=== PATIENT | male | born 1995 | race Caucasian/White ===

== ENCOUNTER → 2018-08-03 | Outpatient (CLI) | payer MEDICAID ==
--- NOTE | 2018-08-08 13:01 | CPEEG ---
FOUR-HOUR VIDEO ELECTROENCEPHALOGRAM DATE OF STUDY: 08/03/2018 INTERPRETATION: This 4-hour video EEG contains a mild degree of diffuse nonspecific slowing. These findings could be consistent with a mild diffuse disturbance of cerebral function or sometimes related to medication effect. There were no definite potentially epileptogenic abnormalities present during the awake or sleep recordings. The patient did not have any clinical events during the video EEG monitoring session. REPORT: This 4-hour video EEG monitoring session contains 10 Hz alpha activity of the posterior head regions. There was a mild degree of diffuse theta slowing present in the background on an intermittent basis. There was no abnormal activation at rest, during photic stimulation or hyperventilation. The patient became drowsy and fell asleep during the study. During drowsiness, the patient had drowsy bursts composed of moderate to high amplitude theta and delta frequency activity, maximal over the anterior head regions. This can be a normal drowsy pattern. There was no abnormal activation during drowsiness, sleep or during times of arousal. The patient did not have any clinical events during the video EEG monitoring session. /[id number]/MODL MTDD
== END ==
LOC: FCPNEURO 07:51
PROVIDERS: ATTEND Psychiatry & Neurology Neurology
DX: R46.89 Other symptoms and signs involving appearance and behavior (principal); R55 Syncope and collapse

== ENCOUNTER 2018-10-07 20:27 | Emergency (ER) | payer MEDICAID ==
[2018-10-07] MEDS ORDERED: NS 1,000 ML IV ONE (20:29)
--- NOTE | 2018-10-07 20:29 | EDPHY ---
HPI/HX/ROS/PE/MDM Narrative: CHIEF COMPLAINT: Seizure HPI: The patient is a 23 y/o male with a history of bipolar disorder arriving via EMS after a witnessed seizure this evening. He had his first seizure in June, 75 days ago, and was seen here. He had a normal head CT at that time. He followed up with a neurologist and had a normal EEG and brain MRI. His family was advised to record the next seizure if one occurred and then follow up again. The patient is amnesic to [employer]'s events. His father says "we sat down to watch a movie and he fell off the couch and his arms started flopping around." This went on for 2.5-3 minutes. No incontinence, tongue bite, or report of other pain or trauma. He was postictal for EMS, but is alert and oriented here upon assessment. He says he feels good now. He cannot identify an obvious precipitating cause. He denies recent trauma, recent illness, or illicit drug use. Patient's prehospital BGL was 63 and EMS administered D50 on scene. REVIEW OF SYSTEMS: A comprehensive 10 system review of systems is otherwise negative aside from elements mentioned in the history of present illness. PMH: Bipolar disorder - [place], Zyprexa SOCIAL HISTORY: Father at bedside. Daily marijuana use. PHYSICAL EXAM: General:Patient is alert, in no acute distress. ENT:Eyes are normal to inspection. ENT inspection normal. Neck: Normal inspection. Full range of motion. Respiratory:No respiratory distress. Breath sounds normal bilaterally. Cardiovascular: Regular rate and rhythm. Strong peripheral pulses. Normal cap refill. Abdomen:The abdomen is nontender to palpation. There are no peritoneal signs. Back: Normal to inspection. No tenderness to palpation. Skin: Normal color. No rash. Warm and dry. Extremities: Normal appearance. Full range of motion. Neuro: Oriented x3. Normal motor function. Normal sensory function. ED Course: This is a 23 y/o male with bipolar disorder and history of a first-time seizure 75 days ago who presents today after a 2nd witnessed seizure at home. He is no longer postictal and denies any complaints. He has followed up with neurology since the first seizure and followed their treatment course thus far. His exam is unremarkable. Plan for IV, labs, EKG. 1L IV NS ordered. The 12 lead EKG was interpreted by myself. Sinus mechanism. Similar compared to EKG from 07/19/18. See hard copy and/or "tracemaster" electronic copy for interpretation. Labs unremarkable. Reassessed patient and discussed findings. He is eager to return home. As this is his second seizure and he has already had neuroimaging performed for this we opted to not pursue additional imaging tonight. He understands he needs to follow up with his neurologist after discharge. Standard seizure precautions discussed. He is comfortable with plan for discharge. MDM: This patient presents after a witnessed seizure-like event. He has apparently had a negative EEG within the last year, negative imaging, and today has no stigmata of seizure on exam nor decreased bicarb to suggest seizure. The etiology of his episode is unclear but repeat workup here in the ED is negative. I think patient needs outpatient neurology re-evaluation. He was advised not to drive or participate in any other potentially dangerous activity until cleared. - Data Points Laboratory Results: Laboratory Results 10/07/18 20:35 10/07/18 20:35 10/07/18 10/07/18 20:35 20:35 WBC 10.94 10^3/uL H 10^3/uL (3.80-9.50) RBC 5.46 10^6/uL 10^6/uL (4.40-6.38) Hgb 16.3 g/dL g/dL (13.7-17.5) Hct 51.8 % H % (40.0-51.0) MCV 94.9 fL fL (81.5-99.8) MCH 29.9 pg pg (27.9-34.1) MCHC 31.5 g/dL L g/dL (32.4-36.7) RDW 13.6 % % (11.5-15.2) Plt Count 306 10^3/uL 10^3/uL (150-400) MPV 9.4 fL fL (8.7-11.7) Neut % (Auto) 53.0 % % (39.3-74.2) Lymph % (Auto) 36.3 % % (15.0-45.0) Reagan % (Auto) 8.0 % % (4.5-13.0) Eos % (Auto) 2.0 % % (0.6-7.6) Baso % (Auto) 0.4 % % (0.3-1.7) Nucleat RBC Rel Count 0.0 % % (0.0-0.2) Absolute Neuts (auto) 5.80 10^3/uL 10^3/uL (1.70-6.50) Absolute Lymphs (auto) 3.97 10^3/uL H 10^3/uL (1.00-3.00) Absolute Monos (auto) 0.88 10^3/uL H 10^3/uL (0.30-0.80) Absolute Eos (auto) 0.22 10^3/uL 10^3/uL (0.03-0.40) Absolute Basos (auto) 0.04 10^3/uL 10^3/uL (0.02-0.10) Absolute Nucleated RBC 0.00 10^3/uL 10^3/uL (0-0.01) Immature Gran % 0.3 % % (0.0-1.1) Immature Gran # 0.03 10^3/uL 10^3/uL (0.00-0.10) Sodium 141 mEq/L mEq/L (135-145) Potassium 4.1 mEq/L mEq/L (3.3-5.0) Chloride 103 mEq/L mEq/L (97-110) Carbon Dioxide 25 mEq/l mEq/l (22-31) Anion Gap 13 mEq/L mEq/L (6-14) BUN 11 mg/dL mg/dL (7-23) Creatinine 0.7 mg/dL mg/dL (0.7-1.3) Estimated GFR > 60 Glucose 48 mg/dL L mg/dL (70-100) Calcium 8.6 mg/dL mg/dL (8.5-10.4) [place] 0.8 mEq/L mEq/L (0.6-1.2) Medications Given: Discontinued Medications Sodium Chloride (Ns) 1,000 mls @ 0 mls/hr IV EDNOW ONE; Wide Open PRN Reason: Protocol Stop: 10/07/18 20:30 Last Admin: 10/07/18 20:38 Dose: 1,000 mls General Time Seen by Provider: 10/07/18 20:27 Initial Vital Signs: Initial Vital Signs Temperature (C) 36.8 C 11/17/18 20:34 Heart Rate 79 10/07/18 20:34 Respiratory Rate 16 10/07/18 20:34 Blood Pressure 108/56 L 10/07/18 20:34 O2 Sat (%) 93 10/07/18 20:34 O2 Delivery Mode Room Air Allergies/Adverse Reactions: No Known Allergies Allergy (Unverified 07/19/18 22:14) Home Medications: Medication Instructions Recorded [place] Carbonate [[place] 900 mg PO HS 07/19/18 Carbonate 600 mg cap (*)] OLANZapine [Olanzapine] 10 mg IM 07/19/18 Sertraline HCl [Zoloft 100mg (*)] 07/19/18 Propranolol Sr 10/07/18 Vitamin D3 10/07/18 Departure - Departure Disposition: Home, Routine, Self-Care Clinical Impression: Seizure Condition: Good Instructions: Recurrent Seizures in Adults (ED) Additional Instructions: 1. Do not drive or operate machinery or perform any other task that could put you or others at risk in case of a recurrent seizure until cleared by neurologist to do so. 2. Follow up with your neurologist in the next week. 3. Return to the ED for recurrent seizure or other worsening of condition. Referrals: Reggie Gallegos MD [Medical Doctor] - As per Instructions Report Scribed for: Seth Jimenez Report Scribed by: Betzaida Rodriguez Date of Report: 10/07/18 Time of Report: 20:43 Physician Review and Approval Statement: Portions of this note were transcribed by an ED scribe. I personally performed the history, physical exam, and medical decision making; and confirm the accuracy of the information in the transcribed note.
[2018-10-07 20:42] LABS: PLATELET COUNT 306 10^3/uL (150-400)
[2018-10-07 21:27] VITALS: BP 114/63
--- NOTE | 2018-10-07 23:01 | CPEKG ---
Test Reason : OPEN Blood Pressure : / mmHG Vent. Rate : 076 BPM Atrial Rate : 077 BPM P-R Int : 222 ms QRS Dur : 117 ms QT Int : 429 ms P-R-T Axes : 064 081 011 degrees QTc Int : 483 ms Sinus rhythm Prolonged W[place] interval Nonspecific intraventricular conduction delay Confirmed by Seth Jimenez ([id number]) on 10/07/2018 11:01:20 PM Referred By: Confirmed By:Seth Jimenez
== END 2018-10-07 21:26 | disposition home or self-care (01) ==
LOC: EDUNIT#
DX: R56.9 Unspecified convulsions (principal); F31.9 Bipolar disorder, unspecified; E86.9 Volume depletion, unspecified; Z79.899 Other long term (current) drug therapy

== ENCOUNTER → 2018-12-26 | Outpatient (CLI) | payer MEDICAID | LOC: FIMAGING 17:05 | PROVIDERS: ATTEND Internal Medicine Critical Care Medicine | DX: R09.02 Hypoxemia (principal); R06.02 Shortness of breath; R05 Cough ==

== ENCOUNTER → 2019-02-27 | Outpatient (CLI) | payer MEDICAID ==
[~2019-02-27] MED LIST: IOPAMIDOL (ISOVUE 370) 100 ML BTL IV ONE
== END ==
LOC: FIMAGING 09:57
PROVIDERS: ATTEND Internal Medicine Critical Care Medicine
DX: R09.02 Hypoxemia (principal); R06.02 Shortness of breath; J45.909 Unspecified asthma, uncomplicated; R91.8 Other nonspecific abnormal finding of lung field; G47.30 Sleep apnea, unspecified
CPT/HCPCS: Q9967

== ENCOUNTER → 2019-04-14 | Outpatient (CLI) | payer MEDICAID | LOC: FCPNEURO 21:00 ==